=== PATIENT | female | born 1995 | race Hispanic/Latino ===

== ENCOUNTER 2021-11-06 09:26 | Emergency (ER) | payer OTHER ==
[~2021-11-06] VITALS: Ht 165.1 cm; Wt 54.4 kg
[2021-11-06 10:13] LABS: BASOPHILS % (AUTO) 0.4 % (0.0-5.0); EOSINOPHILS % (AUTO) 2.3 % (0.0-8.0); HEMATOCRIT 43.8 % (36-48); LYMPHOCYTES % (AUTO) 23.7 % (21.0-51.0); MEAN CORPUSCULAR HEMOGLOBIN 30.2 pg (27.0-33.0); MEAN CORPUSCULAR VOLUME 88.8 fL (79-99); MONOCYTES % (AUTO) 7.4 % (3.0-13.0); NEUTROPHILS % (AUTO) 66.1 % (40.0-77.0); PLATELET COUNT (AUTO) 223 K/uL (130-400); RED BLOOD CELL COUNT(AUTO) 4.93 MIL/uL (4.00-5.50); RED CELL DISTRIBUTION WIDTH 12.2 % (11.0-15.5); WHITE BLOOD COUNT (AUTO) 10.1 K/uL (4.8-10.8)
[2021-11-06 10:22] LABS: CARBON DIOXIDE 26 mmol/L (21-32); CHLORIDE 98 mmol/L (101-111); CREATININE 0.8 mg/dL (0.5-1.5); GLOMERULAR FILTR. RATE CALC 91 mL/min (>60); POTASSIUM 4.1 mmol/L (3.5-5.1); SODIUM SERUM 133 mmol/L (136-145); UREA NITROGEN, BLOOD 12 mg/dL (7-18)
[2021-11-06 10:28] LABS: ALANINE AMINOTRANSFERASE 21 U/L (12-78); ALBUMIN 3.4 g/dL (3.5-5.0); AMYLASE 29 U/L (25-115); ASPARTATE AMINOTRANSFERASE 15 U/L (10-37); BILIRUBIN,TOTAL 0.7 mg/dL (0.2-1.0); GLUCOSE,RANDOM 96 mg/dL (70-105); TOTAL PROTEIN, SERUM 8.3 g/dL (6.0-8.3)
[2021-11-06 10:29] LABS: LIPASE < 50 U/L (114-286)
[2021-11-06] MEDS ORDERED: MORPHINE 2 MG SYG IVP ONE (12:30)
[2021-11-06] MEDS ORDERED: 0.9%NACL 1000ML 570 ML IV ONE (12:30)
[2021-11-06] MEDS ORDERED: ONDANSETRON 4MG INJ IVP ONE (12:30)
[2021-11-06] MEDS ORDERED: IOHEXOL-350 75 ML VIAL IV ONE (12:58)
[2021-11-06] MEDS ORDERED: NA P133E22 RC (14:24)
[2021-11-06] MEDS ORDERED: MAGN296S76 PO (14:24)
[2021-11-06 14:28] VITALS: BP 115/65
== END 2021-11-06 14:33 | disposition home or self-care (01) ==
LOC: EDBD 09:26 → EDH 09:26
DX: K59.00 Constipation, unspecified (principal); R10.11 Right upper quadrant pain; R10.31 Right lower quadrant pain; Z98.890 Other specified postprocedural states
CPT/HCPCS: 36415; 74177; 80053; 82150; 83690; 85025; 96361; 96374; 96375; 99285; J2405; J7030; Q9967